=== PATIENT | male | born 1955 | race Caucasian/White ===

== ENCOUNTER 2020-11-03 00:41 | Emergency (ER) | payer OTHER ==
[~2020-11-03] VITALS: Ht 172.7 cm; Wt 68.0 kg
[2020-11-03] MEDS ORDERED: SODIUM CHLORIDE FLUSH 10ML SYR IVF ONE (01:00)
[2020-11-03] MEDS ORDERED: ONDANSETRON 2MG/ML, 2ML IVPush ONE (01:00)
[2020-11-03] MEDS ORDERED: MORPHINE SULFATE 4 MG/ML, 1ML ONE ×2 (01:19→04:40)
[2020-11-03] MEDS ORDERED: ONDANSETRON 2MG/ML, 2ML ONE (01:19)
[2020-11-03] MEDS: MORPHINE SULFATE 4 MG/ML, 1ML IVPush PRN ×2 (01:22→04:41)
[2020-11-03 01:36] LABS: BASOPHILS % (AUTO) 1 % (0-1); EOSINOPHILS % (AUTO) 1 % (1-7); LYMPHOCYTES % (AUTO) 21 % (22-44); MEAN CORPUSCULAR HEMOGLOBIN 29.8 pg (27.5-34.5); MEAN CORPUSCULAR HGB CONC 34.4 g/dL (33.2-36.2); MEAN PLATELET VOLUME 7.4 fL (7.4-10.4); MONOCYTES % (AUTO) 7 % (2-9); NEUTROPHILS % (AUTO) 70 % (42-75); PLATELET COUNT 261 x10^3/uL (130-400); RED BLOOD COUNT 4.49 x10^6/uL (4.38-5.82); RED CELL DISTRIBUTION WIDTH 13.8 % (9.4-14.8)
[2020-11-03 01:38] LABS: MD NO
[2020-11-03 01:40] LABS: ALBUMIN 3.9 g/dL (3.4-5.0); ANION GAP 10 mmol/L (5-15); CALCIUM 9.4 mg/dL (8.5-10.1); CHLORIDE 106 mmol/L (98-107)
[2020-11-03 01:43] LABS: ALANINE AMINOTRANSFERASE 33 U/L (12-78); ALKALINE PHOSPHATASE 69 U/L (45-117); BILIRUBIN,TOTAL 0.8 mg/dL (0.2-1.0); CREATININE 1.15 mg/dL (0.7-1.3); TOTAL PROTEIN 7.7 g/dL (6.4-8.2)
--- NOTE | 2020-11-03 01:56 | NUR ---
CC OF ABD PAIN STARTING ABOUT 1 PM IN THE MIDDLE ABD. PT STATES HAVING BM HELPED WITH PAIN BUT IT IS STILL THERE. AT BEDSIDE/
[2020-11-03] MEDS ORDERED: OMNIPAQUE 350 MG/ML, 100ML BOTTLE ONE (02:03)
[2020-11-03] MEDS ORDERED: SODIUM CHLORIDE 0.9% 1,000ML IVBOLUS ONE (02:30)
--- NOTE | 2020-11-03 02:56 | NUR ---
REPORT TO MAURISIO SIDHUACTIVITIES LEADER OF CARE AT THIS TIME.
--- NOTE | 2020-11-03 02:57 | NUR ---
Addie fields in [facility] - 11/03/20 at 0257 by IN[facility] report given to danilo thapa
--- NOTE | 2020-11-03 03:00 | NUR ---
PT RESTING ON GURNEY AT BEDSIDE NADN. URINAL IN REACH FOR URINE SAMPLE, PT AWARE OF NEED FOR SAMPLE.
[2020-11-03 04:43] VITALS: BP 145/75
--- NOTE | 2020-11-03 04:52 | NUR ---
Pt states having increased pain. Pt medicated per order for pain with relief stated. Urine sent to lab. PO fluids given per physician. Family at bedside. Will monitor. Pt with stable VS.
[2020-11-03 04:58] LABS: MICROSCOPIC AUTO
--- NOTE | 2020-11-03 05:20 | NUR ---
Pt remains comfortable at this time. Pt states he feels much better. Pt with stable VS. Pt denies any needs at this time. Will continue to monitor.
--- NOTE | 2020-11-03 05:44 | NUR ---
Patient/Caregiver given discharge instructions and they have confirmed that they understand the instructions. Patient ambulatory with steady gait.
== END 2020-11-03 05:52 | disposition home or self-care (01) ==
LOC: ED 05:48
DX: N13.2 Hydronephrosis with renal and ureteral calculous obstruction (principal); R10.31 Right lower quadrant pain; R10.84 Generalized abdominal pain; R11.0 Nausea
CPT/HCPCS: 36415; 74177; 80053; 81001; 83690; 85025; 96361; 96374; 96375; 96376; 99285; J2270; J2405; J7030; Q9967